=== PATIENT | female | born 1995 | race Asian ===

== ENCOUNTER 2018-08-13 18:54 | Emergency (ER) | payer BC ==
[2018-08-13 19:17] VITALS: BP 113/75; PULSE 68; TEMP 98; BMI 22.6
--- NOTE | 2018-08-13 19:17 | PDOC ---
Rapid Medical Evaluation Time Seen by Provider: 08/13/18 19:15 Medical Evaluation: 08/13/18 19:15 I performed a brief in-person evaluation of this patient. Chief complaint: Shortness of breath, has had several episodes in past. Scheduled to see PCP tomorrow for same. Pertinent physical exam findings: SpO2 98%, RR 16, clear lungs, no calf tenderness or edema I have ordered the following: EKG, pgu, CXR Patient to proceed to the ED for further evaluation. Discharge Disposition - Diagnosis Shortness of breath - Referrals - Patient Instructions - Post Discharge Activity
--- NOTE | 2018-08-13 21:03 | PDOC ---
Attending Attestation - HPI HPI: The patient is a 23 year old female, with no significant PMH, who presents to the emergency department today complaining of SOB for one day. Patient notes her SOB is exacerbated with deep breathing and exertion, specifically climbing one flight of stairs. She reports associated left arm pressure and mild nausea without vomit. The patient denies chest pain, headache and dizziness. Denies fever, chills, vomit, diarrhea and constipation. Denies dysuria, frequency, urgency and hematuria. Allergies: NKA Past surgical history: None reported Social history: None reported PCP: 08/13/18 23:35 - Physicial Exam PE: GENERAL: The patient is in no acute distress. Speaking in full sentences. HEAD: Normal with no signs of trauma. EYES: PERRLA, EOMI, sclera anicteric, conjunctiva clear. ENT: Ears normal, nares patent, oropharynx clear without exudates. Moist mucous membranes. NECK: Normal range of motion, supple without lymphadenopathy, JVD, or masses. LUNGS: Breath sounds equal, clear to auscultation bilaterally. No wheezes, and no crackles. No conversational dyspnea. HEART:Regular rate and rhythm, normal S1 and S2 without murmur, rub or gallop. ABDOMEN: Soft, nontender, normoactive bowel sounds. No guarding, no rebound. No masses palpable. EXTREMITIES: Normal range of motion, no edema. No clubbing or cyanosis. No erythema, or tenderness. NEUROLOGICAL: Cranial nerves II through XII grossly intact. Normal speech. No focal neurological deficits. MUSCULOSKELETAL: Back non-tender to palpation, no CVA tenderness SKIN: Warm, Dry, normal turgor, no rashes or lesions noted. 08/13/18 23:48 - Medical Decision Making Documentation prepared by MAMI Freire, acting as medical assisting instructor for Zuleyma Galo MD. 08/13/18 23:35 <Dorita March - Last Filed: 08/13/18 23:48> - Resident Resident Name: Rowan Barney - ED Attending Attestation I have performed the following: I have examined & evaluated the patient, The case was reviewed & discussed with the resident, I agree w/resident's findings & plan, Exceptions are as noted - Medical Decision Making 08/13/18 23:56 Ms. Farrell is a 23 yo F who presents to the ER a complaint of shortness of breath which began last night No fevers or chills No cough No chest wall trauma No actual chest pain Most recent travel in June No lower extremity edema Pt has had a prior episode like this which resolved Pt denies wheezing Most recent URI 1month ago 08/14/18 00:12 Laboratory Tests 08/13/18 08/13/18 08/13/18 19:38 21:55 21:55 WBC 9.0 Hgb 14.1 Hct 41.6 Plt Count 228 BUN 13 Creatinine 0.6 Alkaline Phosphatase 75 Troponin I < 0.02 Urine HCG, Qual Negative 08/14/18 00:12 Laboratory Tests 08/13/18 21:55 D-Dimer 494 CXR - no inflitrates Bedside ECHO performed - no pericardial effusion, ? nml EF Will plan to discharge to home Pt has folllow up with PMD tomorrow for "pulmonary test" <Zuleyma Galo - Last Filed: 08/14/18 00:16>
[2018-08-13 22:22] LABS: BASO % 0.4 % (0-2.0); EOS % 1.7 % (0-4.5); HEMATOCRIT 41.6 % (32.4-45.2); HEMOGLOBIN 14.1 GM/dL (10.7-15.3); LYMPH % 36.1 % (8-40); MCH 31.2 pg (25.7-33.7); MCHC 33.9 g/dl (32.0-36.0); MEAN CELL VOLUME 91.8 fl (80-96); MONO % 7.1 % (3.8-10.2); NEUT % 54.7 % (42.8-82.8); PLATELET COUNT 228 K/MM3 (134-434); RBC 4.53 M/mm3 (3.60-5.2); RDW 12.7 % (11.6-15.6)
[2018-08-13 22:38] LABS: INR 0.97 (0.83-1.09); PROTHROMBIN TIME (PATIENT) 11.5 SEC (9.7-13.0)
[2018-08-13 22:41] LABS: ACTIVATED PTT 36.4 SECONDS (25.2-36.5)
--- NOTE | 2018-08-13 23:27 | PDOC ---
History of Present Illness - General Chief Complaint: Shortness of Breath Stated Complaint: SOB Time Seen by Provider: 08/13/18 19:15 History Source: Patient Exam Limitations: No Limitations - History of Present Illness Initial Comments: 08/13/18 23:22 Pt is a 23yo F with no significant PMH presenting to ED with SOB that started last night/this morning. Pt states that she has difficulty with inspiration more than expiration and feels it at rest and with exertion. She has had similar episodes in the past but this time she is not having chest pain. She is endorsing a pulling sensation in the L arm and some nausea. She denies fever, chills, cough, palpitations, pleuritic chest pain, swelling or pain in the calves, recent surgery, use of OCP, back pain, abdominal pain, syncope. She states that she had a "breathing test" in the past and that "she failed". She has one scheduled for tomorrow. Traveled to [facility] in June. No cardiac history or clotting disorders in her or the family. Had asthma as a child. She states that for the past week she feels more winded when exerting herself. PMD: PMH: none PSH: none Meds: none Allergies: nkda Social: denies Past History - Past Medical History Allergies/Adverse Reactions: Allergies Allergy/AdvReac Type Severity Reaction Status Date / Time No Known Allergies Allergy Verified 08/13/18 19:17 COPD: No - Suicide/Smoking/Psychosocial Hx Smoking History: Never smoked Review of Systems - Review of Systems Constitutional: No: Chills, Fever, Weakness HEENTM: No: Symptoms Reported Respiratory: Yes: Shortness of Breath, SOB with Exertion, SOB at Rest. No: Cough, Wheezing, Hemoptysis Cardiac (ROS): No: Chest Pain, Palpitations, Syncope ABD/GI: Yes: Nausea. No: Constipated, Diarrhea, Poor Appetite, Vomiting : No: Symptoms Reported Musculoskeletal: No: Back Pain, Muscle Pain, Neck Pain Integumentary: No: Symptoms Reported Neurological: No: Headache, Numbness, Tingling, Weakness *Physical Exam - Vital Signs Last Vital Signs Temp Pulse Resp BP Pulse Ox 98.0 F 68 20 113/75 99 08/13/18 19:15 08/13/18 19:15 08/13/18 19:15 08/13/18 19:15 08/13/18 19:15 - Physical Exam General Appearance: Yes: Nourished, Appropriately Dressed. No: Apparent Distress HEENT: positive: EOMI, DICK Neck: positive: Trachea midline, Supple Respiratory/Chest: positive: Lungs Clear, Normal Breath Sounds. negative: Decreased Breath Sounds, Crackles, Rales, Rhonchi, Stridor, Wheezing Cardiovascular: positive: Regular Rhythm, Regular Rate, S1, S2. negative: Edema , JVD, Murmur Vascular Pulses: Carotid (R): 2+, Carotid (L): 2+, Dorsalis-Pedis (R): 2+, Doralis-Pedis (L): 2+ Gastrointestinal/Abdominal: positive: Normal Bowel Sounds, Soft. negative: Rebound, Tenderness Musculoskeletal: negative: CVA Tenderness Extremity: positive: Normal Capillary Refill. negative: Pedal Edema, Swelling, Calf Tenderness Integumentary: positive: Normal Color, Dry, Warm Neurologic: positive: craps dealer II-XII NML intact, Fully Oriented, Alert, Normal Mood/ Affect, Normal Response, Motor Strength 5/5 Moderate Sedation - Procedure Monitoring Vital Signs: Procedure Monitoring Vital Signs Temperature 98.0 F 08/13/18 19:15 Pulse Rate 68 08/13/18 19:15 Respiratory Rate 20 08/13/18 19:15 Blood Pressure 113/75 08/13/18 19:15 O2 Sat by Pulse Oximetry (%) 99 08/13/18 19:15 ED Treatment Course - LABORATORY CBC & Chemistry Diagram: 08/13/18 21:55 08/13/18 21:55 - ADDITIONAL ORDERS Additional order review: Laboratory Results 08/13/18 08/13/18 08/13/18 21:55 21:55 19:38 PT with INR 11.50 INR 0.97 PTT (Actin FS) 36.4 D-Dimer 494 Urine HCG, Qual Negative 08/13/18 21:55 RBC 4.53 MCV 91.8 MCHC 33.9 RDW 12.7 MPV 8.0 Neutrophils % 54.7 Lymphocytes % 36.1 Monocytes % 7.1 Eosinophils % 1.7 Basophils % 0.4 Medical Decision Making - Medical Decision Making 08/13/18 23:27 Pt is a 23yo F with no significant PMH presenting to ED with SOB that started last night/this morning. Pt states that she has difficulty with inspiration more than expiration. She has had similar episodes in the past but this time she is not having chest pain. She is endorsing a pulling sensation in the L arm and some nausea. She denies fever, chills, cough, palpitations, pleuritic chest pain, swelling or pain in the calves, recent surgery, use of OCP, back pain, abdominal pain, syncope. She states that she had a "breathing test" in the past and that "she failed". She has one scheduled for tomorrow. Traveled to [facility] in June. No cardiac history or clotting disorders in her or the family. Had asthma as a child Vitals: wnl PE: benign Ddx includes but not limited to pe, ptx, pna, lung disease, cardiac abnormality , arrhythmia urine preg ordered by rme and cxr, ekg upreg negative -cbc, cmp, trop, coags, ddimer CXR normal, no consolidations or effusions, infiltrates ekg nsr labs wnl. ddimer 400s. Does not need CT POCUS cardiac-maybe reduced L contractility? Pt feeling fine. has appt tomorrow. will dc. given referral to pulm and cards *DC/Admit/Observation/Transfer Diagnosis at time of Disposition: Shortness of breath - Discharge Dispostion Disposition: HOME Condition at time of disposition: Good Decision to Admit order: No - Referrals Referrals: Abdi Grullon MD, MD [Staff Physician] - Rolando Mckeon MD [Staff Physician] - Brendon Diaz MD [Staff Physician] - - Patient Instructions Printed Discharge Instructions: DI for Shortness of Breath Additional Instructions: You were seen in the emergency room today for shortness of breath. All the tests were normal and the xray was normal. I do not know the exact cause of the shortness of breath. Please go to the appointment tomorrow and let them know you were seen in the emergency room today. You may need further testing. I would recommend making an appointment with a lining stuffer and/or a putaway driver. Policy Director: Dr. Grullon or Dr. Mckeon Actimize Architect: Dr. Diaz Please come back to the emergency room if you have chest pain, are unable to breathe, you pass out or if any new concerning symptom develops. Thank you - Post Discharge Activity
[2018-08-13 23:31] LABS: ALBUMIN 4.4 g/dl (3.4-5.0); ALK PHOS 75 U/L (45-117); ANION GAP 8 MMOL/L (8-16); BILIRUBIN,TOTAL 0.4 mg/dL (0.2-1); BLOOD UREA NITROGEN 13 mg/dL (7-18); CALCIUM 9.3 mg/dL (8.5-10.1); CHLORIDE 104 mmol/L (98-107); CO2 25 mmol/L (21-32); CREATININE 0.6 mg/dL (0.55-1.3); GLUCOSE,RANDOM 84 mg/dL (74-106); POTASSIUM 3.6 mmol/L (3.5-5.1); SGOT/AST 20 U/L (15-37); SGPT/ALT 36 U/L (13-61); SODIUM 136 mmol/L (136-145)
--- NOTE | 2018-08-14 13:14 | EKG ---
Test Reason : Blood Pressure : / mmHG Vent. Rate : 068 BPM Atrial Rate : 068 BPM P-R Int : 158 ms QRS Dur : 088 ms QT Int : 418 ms P-R-T Axes : 002 087 072 degrees QTc Int : 444 ms NORMAL SINUS RHYTHM NORMAL ECG NO PREVIOUS ECGS AVAILABLE Confirmed by MD DANIELA, JORGE ([id number]) on 08/14/2018 1:14:18 PM Referred By: Confirmed By:JORGE SUAREZ MD
== END 2018-08-14 00:23 | disposition home or self-care (01) ==
LOC: JER 18:54
PROC: B246ZZZ Ultrasonography of Right and Left Heart (ICD-10-PCS; principal; 2018-08-13)
DX: R06.02 Shortness of breath (principal)
CPT/HCPCS: 36415; 71046-TC-FY; 80053; 84484; 84703; 85025; 85379; 85610; 85730; 93005; 93010; 99282-25